=== PATIENT | female | born 1995 | race Caucasian/White ===

== ENCOUNTER → 2022-04-15 | Outpatient (CLI) | payer MEDICAID ==
--- NOTE | 2022-04-15 10:13 | Diagnostic Imaging Report ---
INDICATION: Right wrist injury from a fall 3 views of the right wrist show no fracture, dislocation or other acute abnormalities. IMPRESSION: Negative right wrist Dictated by: Dictated on workstation # [id number]
== END ==
LOC: RAD FS 09:34
PROVIDERS: ATTEND Family Medicine
DX: S69.91XA Unspecified injury of right wrist, hand and finger(s), initial encounter (principal); X58.XXXA Exposure to other specified factors, initial encounter
CPT/HCPCS: 73110